=== PATIENT | male | born 1945 | race Caucasian/White ===

== ENCOUNTER 2016-12-14 09:22 | Outpatient (CLI) | payer MEDICARE, OTHER | END 2016-12-14 09:23 | disposition home or self-care (01) | LOC: RT 09:22 | PROVIDERS: ATTEND Internal Medicine | DX: Z01.810 Encounter for preprocedural cardiovascular examination (principal); Q27.30 Arteriovenous malformation, site unspecified | CPT/HCPCS: 93005 ==

== ENCOUNTER 2017-01-14 08:34 | Outpatient (CLI) | payer MEDICARE, OTHER | END 2017-01-14 08:35 | disposition home or self-care (01) | LOC: LAB.F 08:34 | PROVIDERS: ATTEND Internal Medicine | DX: I26.99 Other pulmonary embolism without acute cor pulmonale (principal) | CPT/HCPCS: 85610 ==

== ENCOUNTER 2017-01-21 08:28 | Outpatient (CLI) | payer MEDICARE, OTHER | END 2017-01-21 08:29 | disposition home or self-care (01) | LOC: LAB.F 08:28 | PROVIDERS: ATTEND Internal Medicine | DX: I26.99 Other pulmonary embolism without acute cor pulmonale (principal) | CPT/HCPCS: 85610 ==

== ENCOUNTER 2017-01-28 08:18 | Outpatient (CLI) | payer MEDICARE, OTHER | END 2017-01-28 08:19 | disposition home or self-care (01) | LOC: LAB.F 08:18 | PROVIDERS: ATTEND Internal Medicine | DX: I26.99 Other pulmonary embolism without acute cor pulmonale (principal) | CPT/HCPCS: 85610 ==

== ENCOUNTER 2017-02-04 08:09 | Outpatient (CLI) | payer MEDICARE, OTHER | END 2017-02-04 08:10 | disposition home or self-care (01) | LOC: LAB.F 08:09 | PROVIDERS: ATTEND Internal Medicine | DX: I26.99 Other pulmonary embolism without acute cor pulmonale (principal) | CPT/HCPCS: 85610 ==

== ENCOUNTER 2017-02-11 08:09 | Outpatient (CLI) | payer MEDICARE, OTHER | END 2017-02-11 08:10 | disposition home or self-care (01) | LOC: LAB.F 08:09 | PROVIDERS: ATTEND Internal Medicine | DX: I26.99 Other pulmonary embolism without acute cor pulmonale (principal) | CPT/HCPCS: 85610 ==

== ENCOUNTER 2017-02-18 08:02 | Outpatient (CLI) | payer MEDICARE, OTHER | END 2017-02-18 08:03 | disposition home or self-care (01) | LOC: LAB.F 08:02 | PROVIDERS: ATTEND Internal Medicine | DX: I26.99 Other pulmonary embolism without acute cor pulmonale (principal) | CPT/HCPCS: 85610 ==

== ENCOUNTER 2017-02-25 08:06 | Outpatient (CLI) | payer MEDICARE, OTHER | END 2017-02-25 08:07 | disposition home or self-care (01) | LOC: LAB.F 08:06 | PROVIDERS: ATTEND Internal Medicine | DX: I26.99 Other pulmonary embolism without acute cor pulmonale (principal) | CPT/HCPCS: 85610 ==

== ENCOUNTER 2017-03-04 08:05 | Outpatient (CLI) | payer MEDICARE, OTHER | END 2017-03-04 08:06 | disposition home or self-care (01) | LOC: LAB.F 08:05 | PROVIDERS: ATTEND Internal Medicine | DX: I26.99 Other pulmonary embolism without acute cor pulmonale (principal) | CPT/HCPCS: 85610 ==

== ENCOUNTER 2017-03-11 07:56 | Outpatient (CLI) | payer MEDICARE, OTHER | END 2017-03-11 07:57 | disposition home or self-care (01) | LOC: LAB.F 07:56 | PROVIDERS: ATTEND Internal Medicine | DX: I26.99 Other pulmonary embolism without acute cor pulmonale (principal) | CPT/HCPCS: 85610 ==

== ENCOUNTER 2017-03-15 13:22 | Outpatient (CLI) | payer MEDICARE, OTHER ==
--- NOTE | 2017-03-15 18:20 | CT Report ---
CT BRAIN WITHOUT CONTRAST: 03/15/2017 CLINICAL INDICATION: Head injury, concussion, history of brain surgery. TECHNIQUE: Axial CT images of the brain were obtained without contrast. No previous CT is available for comparison. FINDINGS: The patient is status post left occipital craniotomy. There is no evidence of intracrania l hemorrhage, mass effect, or midline shift. The basilar cisterns are patent. The visualized orbita l contents and paranasal sinuses are unremarkable. IMPRESSION: POSTOPERATIVE CHANGES OF LEFT OCCIPITAL CRANIOTOMY. NO EVIDENCE OF ACUTE HEMORRHAGE OR MASS EFFECT. In accordance with CT protocol optimization, one or more of the following dose reduction techniques w ere utilized for this exam: automated exposure control, adjustment of mA and/or KV based on patient size, or use of iterative reconstructive technique. JOB #: [id number] EXT JOB #:[id number]
== END 2017-03-15 13:23 | disposition home or self-care (01) ==
LOC: DI 13:22
PROVIDERS: ATTEND Physician Assistant Surgical
DX: S06.0X0D Concussion without loss of consciousness, subsequent encounter (principal); Z79.01 Long term (current) use of anticoagulants
CPT/HCPCS: 70450

== ENCOUNTER 2017-03-18 07:58 | Outpatient (CLI) | payer MEDICARE, OTHER | END 2017-03-18 07:59 | disposition home or self-care (01) | LOC: LAB.F 07:58 | PROVIDERS: ATTEND Internal Medicine | DX: I26.99 Other pulmonary embolism without acute cor pulmonale (principal) | CPT/HCPCS: 85610 ==

== ENCOUNTER 2017-03-25 08:11 | Outpatient (CLI) | payer MEDICARE, OTHER | END 2017-03-25 08:12 | disposition home or self-care (01) | LOC: LAB.F 08:11 | PROVIDERS: ATTEND Internal Medicine | DX: I26.99 Other pulmonary embolism without acute cor pulmonale (principal) | CPT/HCPCS: 85610 ==

== ENCOUNTER 2017-04-01 08:00 | Outpatient (CLI) | payer MEDICARE, OTHER | END 2017-04-01 08:01 | disposition home or self-care (01) | LOC: LAB.F 08:00 | PROVIDERS: ATTEND Internal Medicine | DX: I26.99 Other pulmonary embolism without acute cor pulmonale (principal) | CPT/HCPCS: 85610 ==

== ENCOUNTER 2017-04-15 08:02 | Outpatient (CLI) | payer MEDICARE, OTHER | END 2017-04-15 08:03 | disposition home or self-care (01) | LOC: LAB.F 08:02 | PROVIDERS: ATTEND Internal Medicine | DX: I26.99 Other pulmonary embolism without acute cor pulmonale (principal) | CPT/HCPCS: 85610 ==

== ENCOUNTER 2017-04-25 12:52 | Outpatient (CLI) | payer MEDICARE, OTHER ==
--- NOTE | 2017-04-25 13:47 | CT Report ---
CT OF THE BRAIN WITHOUT CONTRAST: 04/25/2017 CLINICAL INDICATION: History of craniotomy, on Coumadin for pulmonary embolus, falls. TECHNIQUE: Axial CT images of the brain were obtained without intravenous contrast. COMPARISON: 03/15/2017. FINDINGS: Postoperative changes of occipital craniectomy are stable. There is no evidence of interva l calvarial fracture. The ventricles and sulci demonstrate mild symmetric enlargement. Postoperative changes in the left posterior fossa are stable. No new hemorrhage, mass effect, or midline shift is p resent. There is no evidence of hydrocephalus. The visualized orbital contents and paranasal sinuses are unremarkable. IMPRESSION: STABLE POSTOPERATIVE CHANGES. NO EVIDENCE OF INTERVAL HEMORRHAGE. In accordance with CT protocol optimization, one or more of the following dose reduction techniques w ere utilized for this exam: automated exposure control, adjustment of mA and/or KV based on patient size, or use of iterative reconstructive technique. JOB #: [id number] EXT JOB #:[id number]
== END 2017-04-25 12:53 | disposition home or self-care (01) ==
LOC: DI 12:52
PROVIDERS: ATTEND Internal Medicine
DX: R55 Syncope and collapse (principal)
CPT/HCPCS: 36415; 70450; 80048; 85025; 85610

== ENCOUNTER → 2017-04-25 | Outpatient (CLI) | payer MEDICARE, OTHER ==
[2017-04-25 12:45] LABS: BASOPHILS % (AUTO) 0.5 %; EOSINOPHILS # (AUTO) 0.1 10^3/uL (0.0-0.7); EOSINOPHILS % (AUTO) 2.2 %; HCT - HEMATOCRIT 46.3 % (42.0-52.0); HGB - HEMOGLOBIN 15.4 g/dL (14.0-18.0); LYMPHOCYTES # (AUTO) 2.4 10^3/uL (1.5-3.5); MEAN CORPUSCULAR HEMOGLOBIN 28.6 pg (27.0-31.0); MEAN CORPUSCULAR HGB CONC 33.3 g/dL (32.0-36.0); MEAN CORPUSCULAR VOLUME 85.8 fL (80.0-94.0); MEAN PLATELET VOLUME 7.3 fL (7.4-11.4); MONOCYTES # (AUTO) 0.6 10^3/uL (0.0-1.0); MONOCYTES % (AUTO) 9.7 %; NEUTROPHILS # (AUTO) 3.3 10^3/uL (1.5-6.6); NEUTROPHILS % (AUTO) 50.6 %; RED BLOOD COUNT 5.39 10^6/uL (4.70-6.10); UNCORRECTED WHITE BLOOD COUNT 6.6 x10^3/uL; WHITE BLOOD COUNT 6.6 x10^3/uL (4.8-10.8)
[2017-04-25 12:54] LABS: CALCIUM 9.7 mg/dL (8.5-10.3); CREATININE 1.1 mg/dL (0.6-1.2); POTASSIUM 4.2 mmol/L (3.5-5.0)
[2017-04-25 13:09] LABS: INR 2.7 (0.8-1.2); PT - PROTHROMBIN TIME 29.5 secs (9.9-12.6)
== END ==
LOC: LAB 08:00
PROVIDERS: ATTEND Internal Medicine
DX: R55 Syncope and collapse (principal); S09.8XXA Other specified injuries of head, initial encounter
CPT/HCPCS: 36415; 80048; 85025; 85610

== ENCOUNTER 2017-05-13 08:13 | Outpatient (CLI) | payer MEDICARE, OTHER | END 2017-05-13 08:14 | disposition home or self-care (01) | LOC: LAB.F 08:13 | PROVIDERS: ATTEND Internal Medicine | DX: I26.99 Other pulmonary embolism without acute cor pulmonale (principal) | CPT/HCPCS: 85610 ==

== ENCOUNTER 2017-07-01 09:10 | Outpatient (CLI) | payer MEDICARE, OTHER | END 2017-07-01 09:11 | disposition home or self-care (01) | LOC: LAB.F 09:10 | PROVIDERS: ATTEND Internal Medicine | DX: I26.99 Other pulmonary embolism without acute cor pulmonale (principal) | CPT/HCPCS: 85610 ==

== ENCOUNTER 2017-07-08 09:43 | Outpatient (CLI) | payer MEDICARE, OTHER | END 2017-07-08 09:44 | disposition home or self-care (01) | LOC: LAB.F 09:43 | PROVIDERS: ATTEND Internal Medicine | DX: I26.99 Other pulmonary embolism without acute cor pulmonale (principal) | CPT/HCPCS: 85610 ==

== ENCOUNTER 2017-07-11 10:50 | Outpatient (CLI) | payer MEDICARE, OTHER | END 2017-07-11 10:51 | disposition home or self-care (01) | LOC: SC 10:50 | PROVIDERS: ATTEND Internal Medicine Pulmonary Disease | DX: G47.33 Obstructive sleep apnea (adult) (pediatric) (principal) | CPT/HCPCS: 99203; G0463; 99212 ==

== ENCOUNTER 2017-07-15 13:28 | Outpatient (CLI) | payer MEDICARE, OTHER | END 2017-07-15 13:29 | disposition home or self-care (01) | LOC: LAB.F 13:28 | PROVIDERS: ATTEND Internal Medicine | DX: I26.99 Other pulmonary embolism without acute cor pulmonale (principal) | CPT/HCPCS: 85610 ==

== ENCOUNTER 2017-08-05 10:14 | Outpatient (CLI) | payer MEDICARE, OTHER | END 2017-08-05 10:15 | disposition home or self-care (01) | LOC: LAB.F 10:14 | PROVIDERS: ATTEND Internal Medicine | DX: I26.99 Other pulmonary embolism without acute cor pulmonale (principal) | CPT/HCPCS: 85610 ==

== ENCOUNTER 2017-08-18 21:44 | Outpatient (CLI) | payer MEDICARE, OTHER | END 2017-08-18 21:45 | disposition home or self-care (01) | LOC: SC 21:44 | PROVIDERS: ATTEND Internal Medicine Pulmonary Disease | DX: G47.33 Obstructive sleep apnea (adult) (pediatric) (principal); G47.61 Periodic limb movement disorder | CPT/HCPCS: 95810 ==

== ENCOUNTER 2017-08-23 08:22 | Emergency (ER) | payer MEDICARE, OTHER ==
--- NOTE | 2017-08-23 09:11 | XRAY Report ---
EXAM: RIGHT ANKLE RADIOGRAPHY EXAM DATE: 08/23/2017 09:03 AM. CLINICAL HISTORY: Pain for one week after fall without improvement. COMPARISON: None. TECHNIQUE: 3 views. FINDINGS: Bones: Normal. No fractures or bone lesions. Joints: Normal. No effusion. No subluxations. The ankle mortise is normally aligned. Soft Tissues: Lateral soft tissue swelling. Calcaneal spurs. IMPRESSION: 1. Moderate lateral right ankle soft tissue swelling. 2. No fracture evident. [facility] Referring Provider Line: [phone] SITE ID: [id number]
--- NOTE | 2017-08-23 10:16 | ED Physician Documentation ---
PD HPI LOWER EXT INJURY - Stated complaint Stated Complaint: RT ANKLE PX - Chief complaint Chief Complaint: Trauma Ext - History obtained from History obtained from: Patient, Family - History of Present Illness PD HPI LOW EXT INJURY LOCATION: Right, Ankle Type of injury: Twist Where injury occurred: Home Timing - onset: How many weeks ago (1) Timing - duration: Weeks (1) Timing - details: Abrupt onset, Still present Improved by: Rest Worsened by: Moving, Palpating Associated symptoms: Swelling Contributing factors: Anticoagulated Similar symptoms before: Has not had sx before Recently seen: Not recently seen - Additional information Additional information: 72-year-old male was standing about 1 week ago and his right ankle to spontaneously gave out on him. He twisted he has had some swelling in it he has been able to bear some weight on it does hurt and he is limping on it and he has persistent swelling is coming to the emergency department now for evaluation. He is on Coumadin. Review of Systems Constitutional: denies: Fever Respiratory: denies: Dyspnea, Cough GI: denies: Vomiting : denies: Dysuria Skin: denies: Rash Musculoskeletal: reports: Extremity pain, Joint swelling, Pain with weight bearing. 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 2 PE after surgery. 1 DVT after surgey - Past Surgical History General: Appendectomy Ortho: Arthroscopic surgery Neuro: Other HEENT: Tonsil/Adenoidectomy - Present Medications Home Medications: Ambulatory Orders Medication Instructions Recorded Confirmed Meclizine [Antivert] 25 mg PO Q6H PRN 08/23/17 08/23/17 Tamsulosin [Flomax] 08/23/17 Venlafaxine HCl [Venlafaxine HCl 08/23/17 ER] Warfarin [Coumadin] 3 mg PO 1400 08/23/17 08/23/17 diazePAM [Diazepam] 5 mg PO 08/23/17 - Allergies Allergies/Adverse Reactions: Allergies Allergy/AdvReac Type Severity Reaction Status Date / Time No Known Drug Allergies Allergy Verified 08/23/17 08:37 - Social History Does the pt smoke?: No Smoking Status: Never smoker Does the pt drink ETOH?: No Does the pt have substance abuse?: No - Immunizations Immunizations are current?: No - POLST Patient has POLST: Yes PD ED PE NORMAL - Vitals Vital signs reviewed: Yes (Hypertensive mild) - General General: No acute distress, Well developed/nourished - HEENT HEENT: Atraumatic, PERRL, EOMI - Neck Neck: Supple, no meningeal sign - Respiratory Respiratory: No respiratory distress - Derm Derm: Normal color, Warm and dry, No rash - Extremities Extremities: Other (There is swelling and point tenderness over the talofibular ligament on the right ankle. The distal neurovascular components are intact there is no bruising to the area the area is generally swollen.) - Neuro Neuro: No motor deficit, No sensory deficit Eye Opening: Spontaneous Motor: Obeys Commands Verbal: Oriented GCS Score: 15 - Psych Psych: Normal mood, Normal affect Results - Vitals Vitals: Vital Signs - 24 hr 08/23/17 08:42 Temperature 36.3 C L Heart Rate 67 Respiratory 14 Rate Blood Pressure 133/91 H O2 Saturation 97 - Labs Labs: Laboratory Tests 08/23/17 09:39 Whole Blood INR 2.0 H - Rads (name of study) Left ankle Radiology: Prelim report reviewed (Impression: 1. Moderate lateral right ankle soft tissue swelling. 2. No fracture evident.), EMP read indepedently, See rad report Procedures - Splint (location) left ankle Splint applied by: Tech Type of splint: Ankle airsplint Other: Patient tolerated well, No complications, Neurovascular intact, Good alignment PD MEDICAL DECISION MAKING - ED course Complexity details: reviewed results, re-evaluated patient, considered differential, d/w patient, d/w family ED course: 72-year-old male on Coumadin has an INR of 2.0 today he has swelling of his ankle consistent with a sprain and he is placed into an ankle stirrup. I have asked the patient to wear 24 7 for 2 weeks and to wear it as needed throughout the rest of the summer when he is walking on uneven ground. Departure - Departure Disposition: 01 Home, Self Care Clinical Impression: Ankle sprain Qualifiers: Encounter type: initial encounter Involved ligament of ankle: calcaneofibular ligament Laterality: right Qualified Code(s): S93.411A - Sprain of calcaneofibular ligament of right ankle, initial encounter Instructions: ED Sprain Ankle W X Ray Follow-Up: AKANKSHA CASTILLO MD [Primary Care Provider] -
[2017-08-23 10:36] VITALS: BP 124/94
== END 2017-08-23 10:34 | disposition home or self-care (01) ==
LOC: ED 08:22
DX: S93.411A Sprain of calcaneofibular ligament of right ankle, initial encounter (principal); X50.1XXA Overexertion from prolonged static or awkward postures, initial encounter; Y92.009 Unspecified place in unspecified non-institutional (private) residence as the place of occurrence of the external cause; Z86.711 Personal history of pulmonary embolism; Z86.718 Personal history of other venous thrombosis and embolism; Z79.01 Long term (current) use of anticoagulants
CPT/HCPCS: 85610; 99283

== ENCOUNTER 2017-09-19 14:10 | Outpatient (CLI) | payer MEDICARE, OTHER | END 2017-09-19 14:11 | disposition home or self-care (01) | LOC: SC 14:10 | PROVIDERS: ATTEND Nurse Practitioner Family | DX: G47.33 Obstructive sleep apnea (adult) (pediatric) (principal); G47.61 Periodic limb movement disorder | CPT/HCPCS: 99214; G0463; 99212 ==

== ENCOUNTER 2017-10-11 16:39 | Outpatient (CLI) | payer MEDICARE, OTHER ==
[2017-10-11 17:44] LABS: INR 1.2 (0.8-1.2); PT - PROTHROMBIN TIME 13.5 secs (9.9-12.6)
== END 2017-10-11 16:40 | disposition home or self-care (01) ==
LOC: LAB 16:39
PROVIDERS: ATTEND Nurse Practitioner Family
DX: Z79.01 Long term (current) use of anticoagulants (principal); Z01.818 Encounter for other preprocedural examination
CPT/HCPCS: 36415; 85610

== ENCOUNTER 2017-10-18 13:50 | Outpatient (CLI) | payer MEDICARE, OTHER | END 2017-10-18 13:51 | disposition home or self-care (01) | LOC: LAB.F 13:50 | PROVIDERS: ATTEND Internal Medicine | DX: I26.99 Other pulmonary embolism without acute cor pulmonale (principal) | CPT/HCPCS: 85610 ==

== ENCOUNTER 2017-11-10 08:05 | Outpatient (CLI) | payer MEDICARE, OTHER ==
[2017-11-10 10:52] LABS: BASOPHILS % (AUTO) 0.7 %; EOSINOPHILS # (AUTO) 0.2 10^3/uL (0.0-0.7); EOSINOPHILS % (AUTO) 2.6 %; HGB - HEMOGLOBIN 15.1 g/dL (14.0-18.0); LYMPHOCYTES # (AUTO) 1.6 10^3/uL (1.5-3.5); LYMPHOCYTES % (AUTO) 26.3 %; MEAN CORPUSCULAR HEMOGLOBIN 29.7 pg (27.0-31.0); MEAN CORPUSCULAR HGB CONC 33.5 g/dL (32.0-36.0); MEAN CORPUSCULAR VOLUME 88.8 fL (80.0-94.0); MEAN PLATELET VOLUME 7.9 fL (7.4-11.4); MONOCYTES # (AUTO) 0.7 10^3/uL (0.0-1.0); MONOCYTES % (AUTO) 11.9 %; NEUTROPHILS # (AUTO) 3.5 10^3/uL (1.5-6.6); NEUTROPHILS % (AUTO) 58.5 %; PLT - PLATELET COUNT 245 10^3/uL (130-450); RED BLOOD COUNT 5.08 10^6/uL (4.70-6.10); RED CELL DISTRIBUTION WIDTH 13.9 % (12.0-15.0); WHITE BLOOD COUNT 6.1 x10^3/uL (4.8-10.8)
[2017-11-10 11:40] LABS: CORTISOL 6.4 ug/dL
[2017-11-10 11:48] LABS: FERRITIN 39.5 ng/mL (23.9-336.2)
[2017-11-10 11:55] LABS: % IRON SATURATION 27 % (20-50); IRON 98 ug/dL (45-182); TOTAL IRON BINDING CAPACITY 368 ug/dL (250-450); TRANSFERRIN 263 mg/dL (180-329)
== END 2017-11-10 08:06 | disposition home or self-care (01) ==
LOC: LAB.F 08:05
PROVIDERS: ATTEND Internal Medicine
DX: E78.2 Mixed hyperlipidemia (principal)
CPT/HCPCS: 36415; 82533; 82626; 82728; 83540; 84403; 84466; 85025

== ENCOUNTER 2017-11-11 08:16 | Outpatient (CLI) | payer MEDICARE, OTHER | END 2017-11-11 08:17 | disposition home or self-care (01) | LOC: LAB.F 08:16 | PROVIDERS: ATTEND Internal Medicine | DX: E29.1 Testicular hypofunction (principal) | CPT/HCPCS: 36415; 84403 ==

== ENCOUNTER 2017-11-15 15:44 | Emergency (ER) | payer MEDICARE, OTHER ==
[2017-11-15 16:11] VITALS: BP 140/97
--- NOTE | 2017-11-15 16:23 | ED Physician Documentation ---
PD HPI HEAD INJURY - Stated complaint Stated Complaint: HEAD LAC - Chief complaint Chief Complaint: Laceration - History obtained from History obtained from: Patient - History of Present Illness Mechanism of head injury: Fell (Standing on a steep slope and slipped and fell ( mechanical) hittting a fence with his forehead sustaining a laceration on the forehead. No syncope/presyncope. Was on warfarin but stopped 2 weeks ago.) Pain level now: 6 (headache) - Additional information Additional information: Not UTD on tetanus PD PAST MEDICAL HISTORY - Past Medical History Past Medical History: Yes Respiratory: Other : Benign prostate hypertrophy Psych: Depression, Anxiety - Past Surgical History Past Surgical History: Yes General: Appendectomy Ortho: Arthroscopic surgery Neuro: Other HEENT: Tonsil/Adenoidectomy - Present Medications Home Medications: Ambulatory Orders Medication Instructions Recorded Confirmed Meclizine [Antivert] 25 mg PO Q6H PRN 08/23/17 08/23/17 Tamsulosin [Flomax] 08/23/17 Venlafaxine HCl [Venlafaxine HCl 08/23/17 ER] Warfarin [Coumadin] 3 mg PO 1400 08/23/17 08/23/17 diazePAM [Diazepam] 5 mg PO 08/23/17 - Allergies Allergies/Adverse Reactions: Allergies Allergy/AdvReac Type Severity Reaction Status Date / Time No Known Drug Allergies Allergy Verified 08/23/17 08:37 - Social History Does the pt smoke?: No Smoking Status: Never smoker Does the pt drink ETOH?: No Does the pt have substance abuse?: No - Immunizations Immunizations are current?: No - POLST Patient has POLST: Yes PD ED PE NORMAL - Vitals Vital signs reviewed: Yes - General General: Alert and oriented X 3, No acute distress - HEENT HEENT: PERRL, EOMI, Other (1.5cm lac on mid forehead) - Neck Neck: Supple, no meningeal sign, No bony TTP - Back Back: No CVA TTP, No spinal TTP - Derm Derm: Normal color, Warm and dry - Extremities Extremities: No deformity, No tenderness to palpate, Normal ROM s pain - Neuro Neuro: Alert and oriented X 3, Normal speech Eye Opening: Spontaneous Motor: Obeys Commands Verbal: Oriented GCS Score: 15 - Psych Psych: Normal mood, Normal affect Results - Vitals Vitals: Vital Signs - 24 hr 11/15/17 16:08 Temperature 36.5 C Heart Rate 56 L Respiratory 14 Rate Blood Pressure 140/97 H O2 Saturation 100 Oxygen O2 Source Room air - Rads (name of study) CT head and Cspine Radiology: EMP read contemporaneously (NAD chronic findings) Procedures - Laceration (location) forehead Length in cm: 1.5 Wound type: Curved, Flap Wound Preparation: Irrigated copiously NS Skin layer closure: Dermabond Other: Tetanus booster given Complexity: Simple Departure - Departure Disposition: 01 Home, Self Care Clinical Impression: Fall from ground level Facial laceration Qualifiers: Encounter type: initial encounter Qualified Code(s): S01.81XA - Laceration without foreign body of other part of head, initial encounter Head injury Qualifiers: Encounter type: initial encounter Qualified Code(s): S09.90XA - Unspecified injury of head, initial encounter Condition: Good Record reviewed to determine appropriate education?: Yes Instructions: ED Head Injury Closed, ED Laceration Facial Skin Glue Comments: Your blood pressure was elevated today on check into the emergency department. This does not mean that you have hypertension, it is a common phenomenon to come to the emergency department and have elevated blood pressure. I recommend that you see your primary care physician within the week to have it rechecked when you are feeling better.
[2017-11-15] MEDS ORDERED: TETANUS/DIPHTHERIA/PERTUSSIS 0.5 ML SYRINGE IM ONE (16:24)
[2017-11-15] MEDS ORDERED: ACETAMINOPHEN 325 MG TABLET PO STA (16:27)
--- NOTE | 2017-11-15 17:01 | CT Report ---
EXAM: CT HEAD EXAM DATE: 11/15/2017 04:40 PM. CLINICAL HISTORY: Fall head inj. COMPARISON: Head CT dated 04/25/2017. TECHNIQUE: Multiaxial CT images were obtained from the foramen magnum to the vertex. Reformats: Coron al. IV contrast: None. In accordance with CT protocol optimization, one or more of the following dose reduction techniques w ere utilized for this exam: automated exposure control, adjustment of mA and/or KV based on patient s ize, or use of iterative reconstructive technique. FINDINGS: Parenchyma: Encephalomalacia in the medial aspect of the left cerebellum redemonstrated and similar t o the prior examination. Subcortical and periventricular white matter changes also redemonstrated and similar to the prior examination consistent with small vessel schema disease in the appropriate clin ical setting. No intracranial hemorrhage. No mass effect or midline shift. Extraaxial Spaces: Normal for age. No subdural or epidural collections identified. Ventricles: Normal in size and position. Sinuses and Orbits: Imaged paranasal sinuses, orbits, and mastoids show no significant abnormality. Bones: The patient is again noted be status post occipital craniectomy with resolution of the previou sly seen fluid collection posterior to the craniectomy. Other: None. IMPRESSION: 1. No acute intracranial abnormality. 2. Encephalomalacia in the left cerebellum, similar to the prior examination. 3. Small vessel ischemic disease in the appropriate clinical setting redemonstrated and similar. 4. The previously seen fluid collection posterior to the occipital craniectomy has resolved. [facility] Referring Provider Line: [phone] SITE ID: [id number]
--- NOTE | 2017-11-15 17:24 | CT Report ---
EXAM: CT CERVICAL SPINE WITHOUT CONTRAST DATE: 11/15/2017 04:47 PM. HISTORY: Fall head inj. COMPARISONS: None. TECHNIQUE: Thin-section axial images were acquired of the cervical spine without contrast. Post-proce ssing: Coronal and sagittal reformats. Other: None. In accordance with CT protocol optimization, one or more of the following dose reduction techniques w ere utilized for this exam: automated exposure control, adjustment of mA and/or KV based on patient s ize, or use of iterative reconstructive technique. FINDINGS: Alignment: Normal. Bones: No acute fracture. Occipital craniectomy. Interspace Levels/Facets: Multilevel moderate severe disk degeneration, greatest at C6-C7 and C7-T1. Multilevel moderate spinal canal stenosis. Musculature: Fatty atrophy. Other: The paravertebral and prevertebral soft tissues are unremarkable. The lung apices are clear. IMPRESSION: 1. No acute fracture. 2. Multilevel moderate to severe disk degeneration. [facility] Referring Provider Line: [phone] SITE ID: [id number]
== END 2017-11-15 17:29 | disposition home or self-care (01) ==
LOC: ED 15:44
DX: S01.81XA Laceration without foreign body of other part of head, initial encounter (principal); S09.90XA Unspecified injury of head, initial encounter; W01.198A Fall on same level from slipping, tripping and stumbling with subsequent striking against other object, initial encounter; Z23 Encounter for immunization; R03.0 Elevated blood-pressure reading, without diagnosis of hypertension
CPT/HCPCS: 12011; 70450; 72125; 90471; 90715; 99282; 99283; A9270

== ENCOUNTER 2017-11-29 14:38 | Outpatient (CLI) | payer MEDICARE, OTHER | END 2017-11-29 14:39 | disposition home or self-care (01) | LOC: SC 14:38 | PROVIDERS: ATTEND Nurse Practitioner Family | DX: G47.33 Obstructive sleep apnea (adult) (pediatric) (principal) | CPT/HCPCS: 99214; G0463; 99212 ==

== ENCOUNTER 2018-01-10 09:35 | Outpatient (CLI) | payer MEDICARE, OTHER ==
--- NOTE | 2018-01-10 16:47 | XRAY Report ---
Procedure Date: 01/10/2018 Accession Number: [id number] / [id number] Procedure: XR - Chest 2 View X-Ray CPT Code: 62654 FULL RESULT: EXAM: Chest 2 View X-Ray DATE: 01/10/2018 9:52 AM CLINICAL HISTORY: CHEST PAIN COMPARISON: None. TECHNIQUE: 2 views. FINDINGS: Lungs/Pleura: No focal opacities evident. No pneumothorax or pleural effusion. Normal volumes. Mediastinum: The cardiac silhouette is unremarkable. The aortic silhouette is tortuous. Other: None. IMPRESSION: No acute cardiopulmonary abnormality. [facility]
== END 2018-01-10 09:36 | disposition home or self-care (01) ==
LOC: DI 09:35
PROVIDERS: ATTEND Internal Medicine
DX: R07.9 Chest pain, unspecified (principal)
CPT/HCPCS: 71046

== ENCOUNTER 2018-11-01 15:18 | Outpatient (CLI) | payer MEDICARE, OTHER ==
--- NOTE | 2018-11-02 09:35 | XRAY Report ---
Reason: TESTICULAR PAIN,UNSPECIFIED,PAIN IN UNSPECIFIED SH Procedure Date: 11/01/2018 Accession Number: [id number] / [id number] Procedure: XR - Cervical Spine 2 View CPT Code: FULL RESULT: EXAM: CERVICAL SPINE RADIOGRAPHY EXAM DATE: 11/01/2018 03:34 PM. CLINICAL HISTORY: Unspecified, pain in unspecified shoulder. COMPARISONS: CERVICAL SPINE W/O 11/15/2017 4:40 PM. TECHNIQUE: 3 views. FINDINGS: Alignment: Stable straightening/gentle kyphosis of the cervical spine. Stable mild dextroscoliosis lower cervical spine with slight compensatory curve in the upper thoracic spine unchanged since CT of 2018. Bones: Cervical vertebral bodies and posterior elements are visualized through C7-T1. The C7-T1 disk space is obscured by shoulder but posterior alignment is anatomic and stable. No fractures or bone lesions. Stable mild anterior wedging morphology of C5. Disks: Mild disk space narrowing and anterior osteophytosis noted at C3-C4 and C4-C5. Moderate disk space narrowing at C5-C6 and C6-C7. Facets: No degenerative disease. Soft Tissues: No prevertebral soft tissue swelling. Stable appearance of a prior embolization of a right external carotid artery branch in the region of the mastoid. IMPRESSION: Stable degenerative changes as delineated. Evaluation of the C7-T1 disk space is limited by technique. [facility]
--- NOTE | 2018-11-02 09:36 | Ultrasound Report ---
Reason: TESTICULAR PAIN Procedure Date: 11/01/2018 Accession Number: [id number] / [id number] Procedure: US - Testicle CPT Code: FULL RESULT: EXAM: SCROTAL ULTRASOUND EXAM DATE: 11/01/2018 03:58 PM. CLINICAL HISTORY: Testicular pain. COMPARISON: None. TECHNIQUE: Real-time scanning was performed with static images obtained. Color-flow images were utilized. FINDINGS: Right: Testis: 3.9 x 2.8 x 2.9 cm. Normal size and echotexture. No mass, calcification, or abnormal blood flow. 3 mm anechoic simple cyst peripheral lateral aspect. Epididymis: 1 x 0.9 x 1.2 cm. Normal size and echotexture. No mass or abnormal blood flow. Several small anechoic simple-appearing cysts of the head of epididymis largest measures 4 mm. Hydrocele: Small hydrocele Varicocele: None. Left: Testis: 4.4 x 2.2 x 3.0 cm. Normal size and echotexture. No mass, calcification, or abnormal blood flow. Epididymis: 1.1 x 0.9 x 0.8 cm. Normal size and echotexture. No mass or abnormal blood flow. 5 mm anechoic simple-appearing cyst head of the epididymis. Hydrocele: Small. Varicocele: None. IMPRESSION: 1. No specific imaging abnormalities to explain pain. 2. Incidental 3 mm simple cyst lateral testicular parenchyma. 3. Small bilateral epididymal head cysts, likely spermatoceles. 4. Small bilateral hydrocele. [facility]
== END 2018-11-01 15:19 | disposition home or self-care (01) ==
LOC: DI 15:18
PROVIDERS: ATTEND Internal Medicine
DX: N50.819 Testicular pain, unspecified (principal); N43.3 Hydrocele, unspecified; M50.31 Other cervical disc degeneration, high cervical region
CPT/HCPCS: 72040; 76870

== ENCOUNTER 2018-12-19 14:41 | Outpatient (CLI) | payer MEDICARE, OTHER | END 2018-12-19 14:42 | disposition home or self-care (01) | LOC: SC 14:41 | PROVIDERS: ATTEND Nurse Practitioner Family | DX: G47.33 Obstructive sleep apnea (adult) (pediatric) (principal); G25.81 Restless legs syndrome | CPT/HCPCS: 99214; G0463; 99212 ==

== ENCOUNTER 2020-07-14 12:14 | Outpatient (CLI) | payer MEDICARE, OTHER | END 2020-07-14 12:15 | disposition home or self-care (01) | LOC: LAB 12:14 | DX: N39.0 Urinary tract infection, site not specified (principal) | CPT/HCPCS: 81001; 81003; 87086; 87181 ==

== ENCOUNTER 2021-05-07 10:56 | Outpatient (CLI) | payer MEDICARE, OTHER ==
[2021-05-07 12:03] VITALS: BP 139/82
--- NOTE | 2021-05-07 12:03 | SLEEP CARE CONSULTATION ---
Information from patient questionnaire entered by Perry Aparicio MA. I have reviewed and concur with the information entered by Perry Aparicio MA. This document represents the service I personally performed and the decisions made by , Josselin Royal ARNP. History of Present Illness Service Date and Time: 05/07/2021 1056 Previous diagnosis: Mild, Obstructive Sleep Apnea-Hypopnea Syndrome AHI: 13.6 ([facility] 2019) Reason for follow up: annual Equipment type: CPAP Equipment obtained from: [facility] (getting supplies as needed) Mask style: Nasal (over the nose) Mask brand: Respironics ([place], large) Backup mask available: Yes (old mask) Last cushion change: changed on 1st of the month Prior sleep studies: Yes HPI additional information: OBI MARTINI was diagnosed to have mild, AHI 13.6, obstructive sleep apnea- hypopnea syndrome and returned today with spouse for CPAP therapy annual follow- up. CPAP Compliance Data - Data Reviewed with Patient Average duration of nightly device use: 8 hours 12 minutes Compliance rate %: 69.4 (180 days, some missing info) Current pressure setting (cmH2O): 12-15 Humidity settin Heated hose settin Average residual AHI: 0.9 Central apnea: 0.3 Obstructive apnea: 0.3 Average large leak: 1 mins Compliance data discussion: Patient states he uses his device every night and is not sure why there is no use at end of December through January 2021. Subjective Patient concerns: reports: dry mouth, nose, throat. denies: aerophagia, mask discomfort, air blowing in eyes, mask leak noise, condensation in mask/hose, nasal congestion, epistaxis, other Observed to snore while using device: No Current pressure setting perceived as: comfortable On therapy, patient: reports: sleeping better, awakening more refreshed, being more awake and alert during the day, more rested overall. denies: drowsiness while driving Current [place] Sleepiness Scale score: 5 (in 2020) Allergies and Home Medications Home medication list reviewed: Yes Allergy and home medication list: Gabapentin for RLS Baclofen for neck pain Stopped Xanax Review of Systems Review of systems same as previous: No (cerebral shunt after AVM surgery) Physical Exam Vital signs obtained and entered by: Shivam Aparicio CMA AAMA Blood Pressure: 139/82 (left) Cuff size: wrist Heart Rate: 61 O2 Saturation: 95 (with mask) Height: 6 ft Weight: 258 lb (with winter clothes and boots) Body Mass Index: 34.9 BMI Classification: Obese Impression and Plan 1. Obstructive Sleep Apnea-Hypopnea Syndrome, mild, with good treatment compliance and good apnea control. On CPAP therapy, the patient has better sleep quality and is more rested overall. Patient had a shunt placed in his head that has a magnetic feature to it for opening and closing adjustment on the shunt. His current mask has headgear with magnets on it. He and his are concerned because the magnets are somewhat strong and could interfere with his shunt. They have been using an old headgear set because their DME has told him they cannot get it without the magnets on it. I showed patient pressure a [employer] E[employer] 2 mask that is similar to the one he is using that closes with velcro. He would like to try this one, so I wrote for mask refitting. Patient has a Dreamstation. I informed the patient that [employer] has a recall on several devices like the patients machine. Patient was encouraged to register their device online with [employer] for the recall to see if their device is affected. If their device is affected they should start a claim. Patient denies any black particles seen in machine or hoses, any unusual odors coming from dev ice. Patient has not experienced any physical symptoms such as upper airway irritation, headache, skin or eye irritation, asthma, nausea/vomiting, difficulty breathing or chest pain. If patient is not able to sleep due to waking up choking, gasping for air or other respiratory distress that they may decide to continue using it until it is either replaced or repaired. Patient states he does not sleep well without his CPAP and will continue use and monitor for debris, etc in machine. Patient voiced understanding and agreement with plan. Patient was encouraged to lose weight for their overall health and to reduce apneas. Patient's apnea severity and rationale for treatment to reduce apnea, improve sleep quality and reduce cardiovascular and cerebrovascular events was reviewed. I also reviewed the benefit of consistent device use of CPAP for anxiety and COPD. * Continue auto CPAP pressure at 12-15 cmH2O * Mask refitting * Notify me if snoring with mask or feeling that the pressure is too much or too little * Attempt to lose weight * Call this office if any problems using CPAP * Return for follow up in one year, or sooner if concerns arise Counseling Topics: Spare mask, Weight loss health impact Visit Type: In Office Time Spent with Patient (minutes): 23 Provider Statement: I spent 100% of the Face to Face Visit with the patient with greater than 50% spent counseling the patient and coordination of care.
== END 2021-05-07 10:57 | disposition home or self-care (01) ==
LOC: SC 10:56
PROVIDERS: ATTEND Nurse Practitioner Family
DX: G47.33 Obstructive sleep apnea (adult) (pediatric) (principal); E66.9 Obesity, unspecified; Z68.34 Body mass index [BMI] 34.0-34.9, adult
CPT/HCPCS: 99213; G0463; 99212

== ENCOUNTER 2021-10-22 08:31 | Emergency (ER) | payer MEDICARE, OTHER ==
[2021-10-22 08:55] LABS: BASOPHILS % (AUTO) 0.5 %; EOSINOPHILS # (AUTO) 0.3 10^3/uL (0.0-0.7); EOSINOPHILS % (AUTO) 3.8 %; HGB - HEMOGLOBIN 15.4 g/dL (14.0-18.0); LYMPHOCYTES # (AUTO) 2.8 10^3/uL (1.5-3.5); LYMPHOCYTES % (AUTO) 36.6 %; MEAN CORPUSCULAR HGB CONC 34.2 g/dL (32.0-36.0); MEAN CORPUSCULAR VOLUME 87.5 fL (80.0-94.0); MEAN PLATELET VOLUME 9.4 fL (7.4-11.4); MONOCYTES # (AUTO) 0.8 10^3/uL (0.0-1.0); MONOCYTES % (AUTO) 10.9 %; NEUTROPHILS # (AUTO) 3.7 10^3/uL (1.5-6.6); NEUTROPHILS % (AUTO) 47.9 %; PLT - PLATELET COUNT 223 10^3/uL (130-450); RED BLOOD COUNT 5.14 10^6/uL (4.70-6.10); RED CELL DISTRIBUTION WIDTH 13.1 % (12.0-15.0); WHITE BLOOD COUNT 7.7 x10^3/uL (4.8-10.8)
[2021-10-22] MEDS ORDERED: ONDANSETRON 4 MG/2 ML VIAL IVP STA (09:01)
[2021-10-22] MEDS ORDERED: KETOROLAC 15 MG/ML VIAL IVP STA (09:01)
[2021-10-22] MEDS ORDERED: HYDROmorphone 1 MG/ML CARPUJECT IVP STA ×2 (09:01→09:36)
--- NOTE | 2021-10-22 09:02 | ED Physician Documentation ---
PD HPI ABD PAIN - Stated complaint Stated Complaint: N/V/ABD PX - Chief complaint Chief Complaint: Abd Pain - History obtained from History obtained from: Patient, Family - Additional information Additional information: 76-year-old gentleman presents with sudden onset right lower quadrant pain with dry heaves starting at 07 30 this morning. No urinary complaints. He has a remote history of appendicitis. No history of renal colic. 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 Review of Systems Ten Systems: 10 systems reviewed and negative Constitutional: reports: Sweats Cardiac: denies: Chest pain / pressure, Palpitations Respiratory: denies: Dyspnea, Cough PD PAST MEDICAL HISTORY - Past Medical History Respiratory: Other : Benign prostate hypertrophy Psych: Depression, Anxiety - Past Surgical History Past Surgical History: Yes General: Appendectomy Ortho: Arthroscopic surgery Neuro: Other HEENT: Tonsil/Adenoidectomy - Present Medications Home Medications: Ambulatory Orders Medication Instructions Recorded Confirmed Meclizine [Antivert] 25 mg PO Q6H PRN 08/23/17 08/23/17 Tamsulosin [Flomax] 08/23/17 Venlafaxine HCl [Venlafaxine HCl 08/23/17 ER] Warfarin [Coumadin] 3 mg PO 1400 08/23/17 08/23/17 diazePAM [Diazepam] 5 mg PO 08/23/17 - Allergies Allergies/Adverse Reactions: Allergies Allergy/AdvReac Type Severity Reaction Status Date / Time No Known Drug Allergies Allergy Verified 10/22/21 08:43 - Social History Does the pt smoke?: No Smoking Status: Never smoker Does the pt drink ETOH?: No Does the pt have substance abuse?: No - Immunizations Immunizations are current?: No - POLST Patient has POLST: Yes PD ED PE NORMAL - Vitals Vital signs reviewed: Yes - General General: Alert and oriented X 3, Other (He appears uncomfortable and shaking in pain) - HEENT HEENT: PERRL, EOMI - Neck Neck: Supple, no meningeal sign, No bony TTP - Cardiac Cardiac: RRR, No murmur - Respiratory Respiratory: No respiratory distress, Clear bilaterally - Abdomen Abdomen: Normal bowel sounds, Soft, Non tender - Back Back: No CVA TTP - Derm Derm: Normal color, Warm and dry - Extremities Extremities: No edema, No calf tenderness / cord - Neuro Neuro: Alert and oriented X 3, Normal speech Results - Vitals Vitals: Vital Signs - 24 hr 10/22/21 10/22/21 10/22/21 08:39 10:30 12:00 Temperature 36.6 C Heart Rate 59 L 63 67 Respiratory 13 18 19 Rate Blood Pressure 127/90 H 146/86 H 124/76 O2 Saturation 98 95 93 10/22/21 14:00 Temperature Heart Rate 64 Respiratory 17 Rate Blood Pressure 121/71 O2 Saturation 99 Oxygen O2 Source Room air - Labs Labs: Laboratory Tests 10/22/21 10/22/21 10/22/21 08:49 08:49 09:07 WBC 7.7 RBC 5.14 Hgb 15.4 Hct 45.0 MCV 87.5 MCH 30.0 MCHC 34.2 RDW 13.1 Plt Count 223 MPV 9.4 Neut # (Auto) 3.7 Lymph # (Auto) 2.8 Ross # (Auto) 0.8 Eos # (Auto) 0.3 Baso # (Auto) 0.0 Absolute Nucleated RBC 0.00 Nucleated RBC % 0.0 PT 12.8 H INR 1.1 Sodium 139 Potassium 4.1 Chloride 106 Carbon Dioxide 21 Anion Gap 12.0 BUN 23 H Creatinine 1.1 Estimated GFR (MDRD) 65 L Glucose 130 H Calcium 9.3 Total Bilirubin 0.8 AST 24 ALT 27 Alkaline Phosphatase 65 Total Protein 7.1 Albumin 3.9 Globulin 3.2 Albumin/Globulin Ratio 1.2 Lipase 34 Urine Color Urine Clarity Urine pH Ur Specific [place] Urine Protein Urine Glucose (UA) Urine Ketones Urine Occult Blood Urine Nitrite Urine Bilirubin Urine Urobilinogen Ur Leukocyte Esterase Ur Microscopic Review Urine Culture Comments SARS-CoV-2 (PCR) 10/22/21 10/22/21 10:32 14:25 WBC RBC Hgb Hct MCV MCH MCHC RDW Plt Count MPV Neut # (Auto) Lymph # (Auto) Ross # (Auto) Eos # (Auto) Baso # (Auto) Absolute Nucleated RBC Nucleated RBC % PT INR Sodium Potassium Chloride Carbon Dioxide Anion Gap BUN Creatinine Estimated GFR (MDRD) Glucose Calcium Total Bilirubin AST ALT Alkaline Phosphatase Total Protein Albumin Globulin Albumin/Globulin Ratio Lipase Urine Color YELLOW Urine Clarity CLEAR Urine pH 5.0 Ur Specific [place] 1.015 Urine Protein NEGATIVE Urine Glucose (UA) NEGATIVE Urine Ketones NEGATIVE Urine Occult Blood NEGATIVE Urine Nitrite NEGATIVE Urine Bilirubin NEGATIVE Urine Urobilinogen 0.2 (NORMAL) Ur Leukocyte Esterase NEGATIVE Ur Microscopic Review NOT INDICATED Urine Culture Comments NOT INDICATED SARS-CoV-2 (PCR) NOT DETECTED - Rads (name of study) CT abdomen pelvis with incarcerated right inguinal hernia with inflammation and incidental enlargement of the prostate and lumbar degenerative changes Radiology: EMP read contemporaneously PD MEDICAL DECISION MAKING - ED course ED course: 76-year-old gentleman presents with severe right-sided abdominal pain. Sudden onset. Initial presumption was for renal colic. He looks quite uncomfortable. His pain was difficult to manage, initially given a milligram of Toradol Dilaudid and 15 mg of Toradol with no relief, this was followed by 2 mg of IV Dilaudid and subsequently by some IV morphine and Reglan at which point he appeared more comfortable. Initial "wet read" of his CT shows an incarcerated right sided groin hernia. Attention was turned to this area and although not completely obvious on exam initially, palpation of this area did demonstrate a very firm tender lump and reduction was attempted and unsuccessful. Dr. Glover, general surgery was called for consultation at 10:33 AM. He is in the middle of the case but will be down shortly to evaluate the patient. Subsequently notified due to lack of surgery staffing we cannot accommodate this gentleman here today and [facility] was called for transfer at around 11:20 AM given that his prior care has been there. After some delays there he was graciously excepted by Dr. Aaron Palencia to [facility] as [facility] had no beds. I spoke with Dr. Palencia approximately 1:30 PM. Graciously accepted to [facility] by him at that time and cobras were completed. He is stable for transport. Departure - Departure Disposition: 02 Transfer Acute Care Hosp Clinical Impression: Incarcerated right inguinal hernia Condition: Serious
[2021-10-22 09:06] LABS: ALBUMIN 3.9 g/dL (3.2-5.5); ALBUMIN/GLOBULIN RATIO 1.2 (1.0-2.2); BILIRUBIN,TOTAL 0.8 mg/dL (0.2-1.0); CALCIUM 9.3 mg/dL (8.5-10.3); CREATININE 1.1 mg/dL (0.6-1.2); POTASSIUM 4.1 mmol/L (3.5-5.0); TOTAL PROTEIN 7.1 g/dL (6.7-8.2)
[2021-10-22 09:32] LABS: INR 1.1 (0.8-1.2); PT - PROTHROMBIN TIME 12.8 secs (9.9-12.6)
[2021-10-22] MEDS ORDERED: METOCLOPRAMIDE 10 MG/2 ML VIAL IVP STA (09:54)
[2021-10-22] MEDS ORDERED: MORPHINE 2 MG/ML CARPUJECT IVP STA (09:54)
[2021-10-22] MEDS ORDERED: IOPAMIDOL-300 100 ML VIAL ONE (10:11)
[2021-10-22] MEDS ORDERED: LACTATED RINGERS 1,000 ML IV STA (10:53)
--- NOTE | 2021-10-22 10:58 | CT Report ---
PROCEDURE: Abdomen/Pelvis W INDICATIONS: IV only R abd pain CONTRAST: IV CONTRAST: Isovue 300 ml: 100 PO CONTRAST: *NO PO CONTRAST TECHNIQUE: After the administration of intravenous contrast, 5 mm thick sections acquired from the diaphragms to the symphysis. 5 mm thick coronal and sagittal reformats were acquired. For radiation dose reducti on, the following was used: automated exposure control, adjustment of mA and/or kV according to nain ent size. COMPARISON: None. FINDINGS: Image quality: Excellent. ABDOMEN: Lung bases: Lung bases are clear. Heart size is normal. Solid organs: Liver and spleen are normal in size and enhancement. Gallbladder is unremarkable Juan iary system is non dilated. Pancreas enhances normally. No adrenal nodules. Kidneys demonstrate no rmal size and enhancement, without hydronephrosis. Peritoneum and bowel: Bowel loops demonstrate normal wall thickness and caliber. No free fluid or a ir. Nodes and vessels: No retroperitoneal or mesenteric adenopathy by size criteria. Aorta and inferior vena cava are normal in size. Miscellaneous: No ventral hernias. A peritoneal catheter is in place. PELVIS: Genitourinary: Bladder wall thickness is normal. Enlarged prostate. Miscellaneous: There is a right inguinal hernia containing mildly inflamed, mildly dilated small marily l with inflammatory change in the adjacent fat. Findings suggest incarcerated hernia. Bones: No suspicious bony lesions. No vertebral body compression fractures. Lumbar degenerative ch zainab. Canal stenosis at L4-L5. IMPRESSION: 1. Right inguinal hernia containing small bowel likely represents an incarcerated hernia. The bowel a ppears somewhat inflamed and mildly dilated with inflammatory change in the adjacent fat. 2. Incidental findings include enlargement of the prostate and lumbar degenerative change with canal stenosis at L4-L5. Reviewed by: Dallas Diop MD on 10/22/2021 10:57 AM PDT Approved by: Dallas Diop MD on 10/22/2021 10:57 AM PDT Station ID: [id number]
[2021-10-22] MEDS ORDERED: IOPAMIDOL-300 100 ML VIAL IVP ONE (12:04)
[2021-10-22 14:09] VITALS: BP 121/71
[2021-10-22 14:31] LABS: BILIRUBIN,URINE NEGATIVE (NEGATIVE); GLUCOSE, URINE (UA) NEGATIVE (NEGATIVE); KETONES,URINE (UA) NEGATIVE (NEGATIVE); LEUKOCYTE ESTERASE, URINE NEGATIVE (NEGATIVE); NITRITE,URINE NEGATIVE (NEGATIVE); OCCULT BLOOD,URINE NEGATIVE (NEGATIVE); PROTEIN,URINE NEGATIVE (NEGATIVE); UROBILINOGEN,URINE 0.2 (NORMAL) E.U./dL (NORMAL)
[2021-10-22 14:35] LABS: CLARITY,URINE CLEAR (CLEAR)
== END 2021-10-22 15:26 | disposition short-term general hospital (02) ==
LOC: ED 08:31
DX: K40.30 Unilateral inguinal hernia, with obstruction, without gangrene, not specified as recurrent (principal)
CPT/HCPCS: 36415; 74177; 80053; 81003; 83690; 85025; 85610; 87635; 96374; 96375; 99283; 99285; J1170; J2765; J7120; Q9967; 81001; 87086

== ENCOUNTER 2021-10-22 14:43 | Outpatient (CLI) | payer MEDICARE, OTHER | END 2021-10-22 23:59 | disposition short-term general hospital (02) | LOC: EMS 14:43 | PROVIDERS: ATTEND Emergency Medicine | DX: K40.30 Unilateral inguinal hernia, with obstruction, without gangrene, not specified as recurrent (principal) | CPT/HCPCS: A0425; A0428 ==

== ENCOUNTER 2023-03-22 14:52 | Outpatient (CLI) | payer MEDICARE, OTHER | END 2023-03-22 14:53 | disposition critical access hospital (66) | LOC: EMS 14:52 | DX: R47.81 Slurred speech (principal); R47.1 Dysarthria and anarthria; R51.9 Headache, unspecified | CPT/HCPCS: A0425; A0429 ==

== ENCOUNTER 2023-03-22 15:09 | Emergency (ER) | payer MEDICARE, OTHER ==
--- NOTE | 2023-03-22 15:18 | ED Physician Documentation ---
PD HPI FOCAL NEURO - Stated complaint Stated Complaint: CODE STROKE - Chief complaint Chief Complaint: Neuro - History obtained from History obtained from: Patient, EMS - History of Present Illness Timing - onset: How many minutes ago (70) Timing - duration: Minutes (70) Timing - details: Abrupt onset Severity of deficit: Mild Weakness: No: Face, Arm, Hand, Leg, Foot, Right, Left Numbness: No: Face, Arm, Hand, Leg, Foot, Right, Left Associated symptoms: Headache (7/10). No: Nausea / vomiting, Seizure, Syncope, Fall, Head injury, Chest pain, Neck pain, Back pain Contributing factors: negative: Anticoagulated Baseline status: positive: A&OX3, ambulatory, indep - Additional information Additional information: patient states sitting at table today and had difficulty with word finding and speaking. States this has occurred several times in the past few months. Symptoms now mostly resolved. EMS states no focal neuro deficits. Patient with history of AVM surgery in 2006 and a [employer] shunt (not MRI compatible). Denies any chest pain, recent illness or injury. Review of Systems Constitutional: denies: Fever, Chills Ears: denies: Ear pain Nose: denies: Rhinorrhea / runny nose, Congestion Throat: denies: Sore throat Cardiac: denies: Chest pain / pressure, Palpitations Respiratory: denies: Dyspnea, Cough GI: denies: Abdominal Pain, Nausea, Vomiting, Diarrhea : denies: Dysuria, Frequency, Hesitancy Neurologic: reports: Difficulty speaking, Headache (gradual onset 7/10 headache, holocranial). denies: Focal weakness, Numbness, Seizure, Confused, Head injury, LOC Psychiatric: denies: Depressed, Suicidal, Homicidal PD PAST MEDICAL HISTORY - Past Medical History Past Medical History: Yes Respiratory: Other : Benign prostate hypertrophy Psych: Depression, Anxiety - Past Surgical History Past Surgical History: Yes General: Appendectomy Ortho: Arthroscopic surgery Neuro: Other HEENT: Tonsil/Adenoidectomy - Present Medications Home Medications: Ambulatory Orders Medication Instructions Recorded Confirmed Tamsulosin [Flomax] 0.4 mg PO BID 08/23/17 03/16/23 Atorvastatin [Lipitor] 10 mg PO DAILY 03/16/23 03/16/23 Baclofen 10 mg PO HS 03/16/23 03/16/23 DULoxetine [Cymbalta] 90 mg PO DAILY 03/16/23 03/16/23 - Allergies Allergies/Adverse Reactions: Allergies Allergy/AdvReac Type Severity Reaction Status Date / Time No Known Drug Allergies Allergy Verified 03/22/23 15:28 - Social History Does the pt smoke?: No Smoking Status: Never smoker Does the pt drink ETOH?: No Does the pt have substance abuse?: No - Immunizations Immunizations are current?: No - POLST Patient has POLST: Yes PD ED PE NORMAL - Vitals Vital signs reviewed: Yes - General General: Alert and oriented X 3, No acute distress, Well developed/nourished - HEENT HEENT: Atraumatic, PERRL, Ears normal, Moist mucous membranes, Pharynx benign - Neck Neck: Supple, no meningeal sign - Cardiac Cardiac: RRR, Strong equal pulses - Respiratory Respiratory: No respiratory distress, Clear bilaterally - Abdomen Abdomen: Soft, Non tender, Non distended - Back Back: No CVA TTP, No spinal TTP - Derm Derm: Warm and dry, No rash - Extremities Extremities: No edema, No calf tenderness / cord - Neuro Neuro: Alert and oriented X 3, hospice registered nurse 2-12 intact, No motor deficit, No sensory deficit, Normal speech - Psych Psych: Normal mood, Normal affect NIHSS - Time Time: 15:04 - Level of Consciousness Level of consciousness: (0) Alert, Keenly responsive LOC Questions: (0) Answers both Q's correct LOC Commands: (0) Performs both correctly - Gaze Best Gaze: (0) Normal - Visual Visual: (0) No loss - Facial Palsy Facial Palsy: (0) Normal, symmetrical movement - Motor Arms (both separate) Motor Arm (right): (0) No drift Motor Arm (left): (0) No drift - Motor Legs (both separate) Motor Leg (right): (0) No drift Motor Leg (left): (0) No drift - Limb Ataxia Limb Ataxia: (0) Absent - Sensory Sensory: (0) Normal - Best Language Best Language: (0) No aphasia - Dysarthria Dysarthria: (0) Normal - Extinction and Inattention (formally neg Extinction and inattention: (0) No abnormality - Total Score/Results Total Score/Result: 0 Results - Vitals Vitals: Vital Signs - 24 hr 10/03/23 10/03/23 10/03/23 15:28 15:58 16:28 Temperature 36.5 C 36.8 C Heart Rate 63 58 L 60 Respiratory 18 12 18 Rate Blood Pressure 117/85 H 117/85 H 143/95 H O2 Saturation 97 100 96 03/22/23 03/22/23 03/22/23 16:30 17:00 17:30 Temperature 36.8 C Heart Rate 66 64 55 L Respiratory 16 16 22 Rate Blood Pressure 140/88 H 138/90 H 114/79 O2 Saturation 96 98 100 Oxygen O2 Source Room air - EKG (time done) 1533 EKG releavant findings:: EKG personally interpreted by author of this note. Relevant findings are: Rate: Rate (enter#) (65) Rhythm: NSR [place]: Anterior hemiblock (LAFB) Intervals: Normal MI QRS: Normal Ischemia: Normal ST segments - Labs Labs: Laboratory Tests 03/22/23 03/22/23 03/22/23 15:41 15:41 15:41 WBC 6.4 RBC 4.77 Hgb 14.3 Hct 43.1 MCV 90.4 MCH 30.0 MCHC 33.2 RDW 13.0 Plt Count 211 MPV 8.9 Neut # (Auto) 3.9 Lymph # (Auto) 1.7 [place] # (Auto) 0.5 Eos # (Auto) 0.2 Baso # (Auto) 0.0 Absolute Nucleated RBC 0.00 Nucleated RBC % 0.0 PT 12.4 INR 1.2 APTT 27.5 Sodium 137 Potassium 4.1 Chloride 104 Carbon Dioxide 29 Anion Gap 4.0 L BUN 23 H Creatinine 1.0 Estimated GFR (MDRD) 73 L Glucose 90 Calcium 9.3 Total Bilirubin 0.7 AST 9 L ALT 11 Alkaline Phosphatase 57 Total Protein 6.1 L Albumin 3.9 Globulin 2.2 Albumin/Globulin Ratio 1.8 Lipase 65 Urine Color Urine Clarity Urine pH Ur Specific [place] Urine Protein Urine Glucose (UA) Urine Ketones Urine Occult Blood Urine Nitrite Urine Bilirubin Urine Urobilinogen Ur Leukocyte Esterase Ur Microscopic Review Urine Culture Comments 03/22/23 17:05 WBC RBC Hgb Hct MCV MCH MCHC RDW Plt Count MPV Neut # (Auto) Lymph # (Auto) [place] # (Auto) Eos # (Auto) Baso # (Auto) Absolute Nucleated RBC Nucleated RBC % PT INR APTT Sodium Potassium Chloride Carbon Dioxide Anion Gap BUN Creatinine Estimated GFR (MDRD) Glucose Calcium Total Bilirubin AST ALT Alkaline Phosphatase Total Protein Albumin Globulin Albumin/Globulin Ratio Lipase Urine Color YELLOW Urine Clarity CLEAR Urine pH 6.0 Ur Specific [place] <=1.005 Urine Protein NEGATIVE Urine Glucose (UA) NEGATIVE Urine Ketones NEGATIVE Urine Occult Blood NEGATIVE Urine Nitrite NEGATIVE Urine Bilirubin NEGATIVE Urine Urobilinogen 0.2 (NORMAL) Ur Leukocyte Esterase NEGATIVE Ur Microscopic Review NOT INDICATED Urine Culture Comments NOT INDICATED - Rads (name of study) head CT Relevant Findings:: Final report received, See rad report angio head and neck CT Relevant Findings:: Final report received, See rad report PD Medical Decision Making - ED course Complexity details: reviewed results, re-evaluated patient, considered differential, d/w patient ED course: 77-year-old male with what sounds like a TIA likely earlier today. Symptoms had resolved prior to arrival in the emergency department. He did have a headache at that time as well, possible complex migraine? Does have a [employer] shunt, this appears to be functioning normally on CT scan. The headache resolved along with his other symptoms. No fevers. No chills. No significant findings on angiogram of the head and neck. No significant laboratory abnormalities. His confirms that the SU[employer] shunt is not MRI compatible. He will follow-up with his neurologist and neurosurgeon at home. I discussed the case with Dr. Miles, neurology on-call for telestroke. Recommends MRI if able, otherwise start on a baby aspirin daily and follow-up with PCP for further work-up. Patient and jody landa counseled regarding signs and symptoms for which I believe and urgent re- evaluation would be necessary. Patient with good understanding of and agreement to plan and is comfortable going home at this time This document was made in part using voice recognition software. While efforts are made to proofread this document, sound alike and grammatical errors may occur. Departure - Departure Disposition: 01 Home, Self Care Clinical Impression: Aphasia, TIA (transient ischemic attack) Condition: Good Instructions: ED Transient Ischemic Attack Follow-Up: your,doctor in 1week [Other] Comments: Please start on a baby aspirin daily, 81 mg by mouth. Please follow-up with your doctor for further care. Your head CT and angiogram of your head and neck do not show any acute abnormalities today. Please return if your symptoms recur or if you worsen. Forms: PCP List Discharge Date/Time: 03/22/23 17:46
--- NOTE | 2023-03-22 15:41 | CT Report ---
PROCEDURE: Head W/O Stroke Protocol INDICATIONS: aphasia TECHNIQUE: Noncontrast 4.5 mm thick angled axial sections acquired from the foramen magnum to the vertex, with c oronal reformats. For radiation dose reduction, the following was used: automated exposure control, adjustment of mA and/or kV according to patient size. COMPARISON: None. FINDINGS: Image quality: Excellent. CSF spaces: Basal cisterns are patent. No extra-axial fluid collections. Ventricles are stable in size and shape. Brain: No midline shift. No intracranial masses or hemorrhage. No mass effect. Page-white matter i nterface is normal. There cerebral volume loss for age with resultant ventricular and sulcal prominen ce. There are periventricular and deep white matter chronic small vessel ischemic changes. Atheroscle rotic calcifications are noted in the intracranial segments of the bilateral internal carotid arterie s. Stable appearance of left cerebellar encephalomalacia. Stable positioning of right-sided ventricular shunt tubing. Tubing terminates in the region of the se ptum pellucidum. Skull and face: Calvarium and visualized facial bones are intact, without suspicious lesions. Stabl e postsurgical changes around the right mastoid. Stable postsurgical changes of the posterior calvari um. Sinuses: Visualized sinuses and mastoids are clear. IMPRESSION: No acute intracranial abnormalities. Stable age-related senescent changes and sequela of chronic smal l vessel ischemic disease. Stable appearance of postsurgical changes. Ventricles remain stable in siz e and configuration. Findings were discussed with ordering provider on 03/22/2023 at 1538hrs. This study fulfills neurological imaging criteria for inclusion or exclusion of acute stroke therapie s based on available published neurological imaging guidelines. Reviewed by: Efrem Servin MD on 03/22/2023 3:40 PM PDT Approved by: Efrem Servin MD on 03/22/2023 3:40 PM PDT Station ID: [id number]
[2023-03-22 15:45] LABS: BASOPHILS % (AUTO) 0.5 %; EOSINOPHILS # (AUTO) 0.2 10^3/uL (0.0-0.7); EOSINOPHILS % (AUTO) 2.4 %; HCT - HEMATOCRIT 43.1 % (42.0-52.0); HGB - HEMOGLOBIN 14.3 g/dL (14.0-18.0); LYMPHOCYTES # (AUTO) 1.7 10^3/uL (1.5-3.5); LYMPHOCYTES % (AUTO) 26.8 %; MEAN CORPUSCULAR HGB CONC 33.2 g/dL (32.0-36.0); MEAN CORPUSCULAR VOLUME 90.4 fL (80.0-94.0); MEAN PLATELET VOLUME 8.9 fL (7.4-11.4); MONOCYTES # (AUTO) 0.5 10^3/uL (0.0-1.0); MONOCYTES % (AUTO) 8.5 %; NEUTROPHILS # (AUTO) 3.9 10^3/uL (1.5-6.6); NEUTROPHILS % (AUTO) 61.5 %; PLT - PLATELET COUNT 211 10^3/uL (130-450); RED BLOOD COUNT 4.77 10^6/uL (4.70-6.10); WHITE BLOOD COUNT 6.4 x10^3/uL (4.8-10.8)
--- NOTE | 2023-03-22 15:50 | CT Report ---
PROCEDURE: CT Angio Head/Neck INDICATIONS: aphasia CONTRAST: 80mL Omni 300 TECHNIQUE: After the administration of intravenous contrast, 1 mm thick sections acquired through the [place] of [place]. Postcontrast 4.5 mm thick sections then re-acquired from the foramen magnum to the vertex. 3-dimensional [id number] (MIP) and/or volume rendering reformats were acquired of [facility] central intracranial vasculature. For radiation dose reduction, the following was used: automate d exposure control, adjustment of mA and/or kV according to patient size. COMPARISON: CT head from earlier same day and 03/16/2023 FINDINGS: Image quality: Diagnostic. Study somewhat limited by timing of intravenous contrast. Anterior circulation: Intracranial internal carotid arteries are normal in size and flow. The flow within the paired anterior cerebral arteries is normal and symmetric. The flow within the middle cer ebral arteries is normal and symmetric. The anterior communicating artery is seen. No definite aneu rysms are seen. Posterior circulation: Visualized portions of the vertebral arteries are not well visualized seconda ry to adjacent streak artifact/beam hardening artifact. Overall, they demonstrate normal caliber, and join to form a normal appearing basilar artery. Flow within the posterior cerebral arteries is norm al and symmetric. No aneurysms are seen. CSF spaces: Ventricles are stable in size and shape. Basal cisterns are patent. No extra-axial flu id collections. Brain: No midline shift. No intracranial bleeds or masses. Page-white matter interface appears int act. Stable appearance of right ventriculostomy catheter terminating near the septum pellucidum. Skull and face: Calvarium and facial bones appear intact, without suspicious lesions. Stable postsu rgical changes. Sinuses: Visualized sinuses and mastoids are clear. No acute compression fractures. Moderate multilevel cervical spondylosis. No suspicious osseous lesio n. IMPRESSION: Negative CT angiogram of the intracranial and neck arterial vasculature. Somewhat limited visualizati on of the posterior circulation of the neck secondary to adjacent beam hardening/streak artifact as w ell as timing of contrast bolus. Reviewed by: Efrem Servin MD on 03/22/2023 3:48 PM PDT Approved by: Efrem Servin MD on 03/22/2023 3:48 PM PDT Station ID: [id number]
[2023-03-22 16:03] LABS: ALBUMIN 3.9 g/dL (3.2-5.5); ALBUMIN/GLOBULIN RATIO 1.8 (1.0-2.2); BILIRUBIN,TOTAL 0.7 mg/dL (0.2-1.0); CALCIUM 9.3 mg/dL (8.5-10.3); POTASSIUM 4.1 mmol/L (3.5-4.5); TOTAL PROTEIN 6.1 g/dL (6.4-8.9)
[2023-03-22 16:16] LABS: PARTIAL THROMBOPLASTIN TIME 27.5 secs (24.9-33.3)
[2023-03-22 16:20] LABS: INR 1.2 (0.8-1.2); PT - PROTHROMBIN TIME 12.4 secs (9.9-12.6)
[2023-03-22 17:15] LABS: BILIRUBIN,URINE NEGATIVE (NEGATIVE); GLUCOSE, URINE (UA) NEGATIVE (NEGATIVE); KETONES,URINE (UA) NEGATIVE (NEGATIVE); LEUKOCYTE ESTERASE, URINE NEGATIVE (NEGATIVE); NITRITE,URINE NEGATIVE (NEGATIVE); OCCULT BLOOD,URINE NEGATIVE (NEGATIVE); PROTEIN,URINE NEGATIVE (NEGATIVE); UROBILINOGEN,URINE 0.2 (NORMAL) E.U./dL (NORMAL)
[2023-03-22 17:19] LABS: CLARITY,URINE CLEAR (CLEAR)
[2023-03-22] MEDS: ASPIRIN 325 MG TABLET PO STA (17:37)
[2023-03-22 17:41] VITALS: BP 114/79; O2SAT 100
[2023-03-22] MEDS: iohexoL-300 100 ML VIAL IVP ONE (18:28)
== END 2023-03-22 17:46 | disposition home or self-care (01) ==
LOC: EDUNIT# → ED 15:09
DX: G45.9 Transient cerebral ischemic attack, unspecified (principal); R47.01 Aphasia; Z79.899 Other long term (current) drug therapy
CPT/HCPCS: 36415; 80053; 81001; 81003; 83690; 85025; 85610; 85730; 87086; 93005; 99283; 99284